=== PATIENT | male | born 1950 | race Caucasian/White ===

== ENCOUNTER 2021-09-03 11:12 | Outpatient (CLI) | payer MEDICARE, BC, SELFPAY ==
[2021-09-03 11:35] VITALS: BP 152/77; PULSE 73; RESP 21; TEMP 36.9; O2SAT 98
[2021-09-03 12:06] VITALS: BP 148/81; PULSE 68; RESP 19; TEMP 37.1; O2SAT 99; BMI 24.3
[2021-09-03 13:06] VITALS: BP 177/89; PULSE 77; RESP 19; TEMP 36.7; O2SAT 99
== END 2021-09-03 11:13 | disposition home or self-care (01) ==
LOC: OPS 11:14
PROVIDERS: PCP Nurse Practitioner; Visit Provider Nurse Practitioner Family
DX: U07.1 COVID-19 (principal)
CPT/HCPCS: 96365

== ENCOUNTER → 2022-10-16 09:21 | Outpatient (BNVA) | payer MEDICARE, SELFPAY | PROVIDERS: PCP Nurse Practitioner; Visit Provider Nurse Practitioner Family | DX: J98.8 Other specified respiratory disorders (principal); R06.02 Shortness of breath | CPT/HCPCS: 71046 ==

== ENCOUNTER → 2022-10-23 10:44 | Outpatient (BNVA) | payer MEDICARE, SELFPAY | PROVIDERS: PCP Nurse Practitioner; Visit Provider Nurse Practitioner Family | DX: R06.02 Shortness of breath (principal) | CPT/HCPCS: 71046 ==

== ENCOUNTER 2022-10-23 12:37 | Emergency (ER) | payer MEDICARE, SELFPAY ==
[2022-10-23 12:46] VITALS: BP 145/82; PULSE 91; RESP 19; TEMP 36.9; O2SAT 97; BMI 25.0
--- NOTE | 2022-10-23 13:39 | ECG_ITS ---
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 Measurements Intervals [place] Rate: 92 P: 81 ID: [id number] QRS: 68 QRSD: 118 T: -90 QT: 375 QTc: 465 Interpretive Statements SINUS RHYTHM POSSIBLE LEFT ATRIAL ENLARGEMENT [-0.1mV P-WAVE IN V1/V2] LEFT VENTRICULAR HYPERTROPHY AND ST-T CHANGE [VOLTAGE CRITERIA PLUS ST/T ABNORMALITY] No previous ECG available for comparison Electronically Signed On 10-23-2022 23:26:34 MACHINE OVERHAULER by Miguel A Salinas M.D. [id number]
--- NOTE | 2022-10-23 13:48 | ED_ITS ---
HPI - SOB/Dyspnea General: Chief Complaint: Shortness of Breath/Dyspnea Stated Complaint: King yasmeen, sob, legs swelling Time Seen by Provider: 10/23/22 13:36 Source: patient Mode of arrival: ambulatory History of Present Illness: HPI Narrative: 72-year-old male presents to the emergency room with last week generally not feeling well chest x-ray done yesterday shows small pleural effusions and some congestive heart failure changes he was directed here by the nurse practitioner. He currently is on an LORY inhibitor he is not on any diuretics. Patient has no fever sweats or chills he has been short of breath with minimal exertion and has some orthopnea. Has not had any fever sweats chills no productive cough. He denies any chest pain. MD elicited complaint: shortness of breath and cough Pertinent past history: congestive heart failure Onset (ago): week(s) Timing: constant Exacerbating factors: exertion and other (Supine) Relieving factors: upright position Associated symptoms: Reports orthopnea; Deny abdominal pain, chest congestion, chest pain, cough, diaphoresis, dizziness, extremity pain, fever(s), hemoptysis, lightheadedness, myalgias, nausea, palpitations, paresthesias, polydipsia, polyuria, rash, sense of impending doom, syncope or vomiting Treatment prior to arrival: none Review of Systems Const: Denies: fever(s), chills, fatigue, malaise or diaphoresis ENMT: Denies: throat pain, ear or mastoid pain, nasal discharge or nasal congestion Card: Reports: orthopnea; Denies: chest pain, palpitations, lightheadedness, syncope or dyspnea on exertion Resp: Reports: dyspnea; Denies: productive cough, non-productive cough, hemoptysis or chest congestion GI: Denies: abdominal pain, nausea or vomiting : Denies: flank pain, dysuria, urinary frequency or urinary urgency Musc: Denies: extremity pain Skin/Breast: Denies: rash or pruritus Neuro: Denies: dizziness Endo: Denies: polyuria or polydipsia PFSH ED PFSH: Medical History Bee sting allergy Environmental allergies Essential (primary) hypertension Neuropathy due to herpes zoster Type 2 diabetes mellitus Surgical History Hx of hernia repair Family History Mother Diabetes Hypertension Social History Smoking and tobacco status: never smoked Second hand smoke exposure: No Smoking risk assessment/counseling performed?: No Alcohol intake: never Desire information about alcohol rehabilitation?: No Counseling given: No Desire information about substance/drug rehabilitation?: No Counseling given: No Adopted: No Caregiver/support person: No Lives independently: Yes Household members: spouse Housing: House Marital status: service: Yes branch: [employer] Current occupational status: retired Current occupational exposures/hazards: No Pets and animals: Yes Pets & animals: farm animals Current gender identity: Male Physical Exam Const: COMMON NORMALS: no acute distress GENERAL APPEARANCE: cooperative and comfortable ORIENTATION/CONSCIOUSNESS: Yes awake, Yes oriented to person, Yes oriented to place and Yes oriented to time HENMT: COMMON NORMALS: normocephalic and atraumatic HEAD & SCALP: normocephalic and atraumatic Resp: COMMON NORMALS: normal respiratory effort, No retractions and No use of accessory muscles AUSCULTATION: crackles Cardio: COMMON NORMALS: regular rate, regular rhythm and No murmurs present (Cardio) RATE: regular rate RHYTHM: regular rhythm GI: COMMON NORMALS: Soft to palpation and No hepatosplenomegaly present AUSCULTATION: Yes normoactive bowel sounds PALPATION: Yes Soft to palpation, No Tenderness to palpation present (GI), No Guarding due to palpation present (GI) and Yes No hepatosplenomegaly present Extremity: COMMON NORMALS: normal to inspection, capillary refill normal, no clubbing, cyanosis or edema, no calf tenderness and no pedal edema Neuro: SENSORIUM/ORIENTATION: Yes oriented to person, Yes oriented to place and Yes oriented to time Skin: COMMON NORMALS: no rashes or lesions noted GENERAL SKIN EXAM: no rash es or lesions noted Course Vital Signs: Vital signs: Vital Signs Temperature 98.4 F 10/23/22 12:46 Pulse Rate 91 10/23/22 12:46 Respiratory Rate 19 H 10/23/22 12:46 Blood Pressure 145/82 10/23/22 12:46 Pulse Oximetry 97 10/23/22 12:46 Oxygen Delivery Me thod 10/23/22 12:46 MDM - SOB/Dyspnea Medical Decision Making Clinically patient has moderate congestive heart failure. Oxygen sats are good he did respond to diuretics diuresis here in the ER. Recommend increasing his lisinopril adding a low-dose metoprolol at 12.5 daily also adding Lasix deseeding his hydrochlorothiazide schedule an outpatient echocardiogram and follow-up with cardiology. No evidence of pneumonia or pneumothorax. Discussed medication changes with the patient. No incentive chart noticed that the hydrochlorothiazide was still in the active medicine list. We had intended for him to stop it. I had the nursing staff call the patient and ask him to stop the hydrochlorothiazide for now. Medical Records I reviewed the patient's medical records. Lab Data I reviewed the patient's lab results. 10/23/22 14:05 10/23/22 14:05 Labs/Radiology: Laboratory Results WBC 8.9 10^3/uL (4.0-10.0) 10/23/22 14:05 RBC 4.64 10^6/uL (4.1-5.3) 10/23/22 14:05 Hgb 14.1 g/dL (11.7-16.6) 10/23/22 14:05 Hct 43.9 % (42.0-52.0) 10/23/22 14:05 MCV 94.6 fl (80-94) H 10/23/22 14:05 MCH 30.4 pg (28.0-34.0) 10/23/22 14:05 MCHC 32.1 g/dL (30.0-36.0) 10/23/22 14:05 RDW 13.5 % (12.1-15.1) 10/23/22 14:05 Plt Count 177 10^3/cmm (130-400) 10/23/22 14:05 MPV 12.2 fL (7.4-10.4) H 10/23/22 14:05 Neut % (Auto) 67.5 % 10/23/22 14:05 Lymph % (Auto) 18.4 % 10/23/22 14:05 [place] % (Auto) 12.2 % 10/23/22 14:05 Eos % (Auto) 1.4 % 10/23/22 14:05 Baso % (Auto) 0.2 % 10/23/22 14:05 Neut # (Auto) 5.97 10^3/uL (1.8-7.7) 10/23/22 14:05 Lymph # (Auto) 1.6 10^3/uL (0.8-4.8) 10/23/22 14:05 [place] # (Auto) 1.1 10^3/uL (0.2-0.9) H 10/23/22 14:05 Eos # (Auto) 0.1 10^3/uL (0.0-0.8) 10/23/22 14:05 Baso # (Auto) 0.0 10^3/uL (0.0-0.1) 10/23/22 14:05 Nucleated RBC % (auto) 0 % 10/23/22 14:05 Nucleated RBCs # 0.0 /100WBC 10/23/22 14:05 Sodium 137 mmol/L (136-145) 10/23/22 14:05 Potassium 4.0 mmol/L (3.5-5.1) 10/23/22 14:05 Chloride 101 mmol/L (98-107) 10/23/22 14:05 Carbon Dioxide 24 mmol/L (22-29) 10/23/22 14:05 Anion Gap 16.0 (5-19) 10/23/22 14:05 BUN 17 mg/dL (8-23) 10/23/22 14:05 Creatinine 0.8 mg/dL (0.7-1.2) 10/23/22 14:05 GFR Calculation Not Reportable 10/23/22 14:05 Glucose 135 mg/dL (65-115) H 10/23/22 14:05 Calculated Osmolality 288 mOsm/kg (285-295) 10/23/22 14:05 Calcium 8.8 mg/dL (8.5-10.5) 10/23/22 14:05 Total Bilirubin 0.8 mg/dL (0.15-1.2) 10/23/22 14:05 AST 20 U/L (0-40) 10/23/22 14:05 ALT 39 U/L (0-41) 10/23/22 14:05 Alkaline Phosphatase 52 U/L (40-130) 10/23/22 14:05 Total Protein 6.5 g/dL (6.6-8.7) L 10/23/22 14:05 Albumin 4.1 g/dL (3.5-5.2) 10/23/22 14:05 Globulin 2.4 g/dL (1.3-4.6) 10/23/22 14:05 Discharge Plan Discharge Patient Disposition: Home Clinical Impression: Congestive heart failure, Essential (primary) hypertension, Type 2 diabetes mellitus Condition: Stable Prescriptions: New Toprol XL 25 mg tablet extended release 24 hr 12.5 mg PO DAILY Qty: 30 0RF furosemide 20 mg tablet 20 mg PO DAILY Qty: 30 0RF Changed lisinopril 20 mg tablet 20 mg PO QDAY Qty: 30 0RF Discontinued hydrochlorothiazide 12.5 mg tablet 12.5 mg PO DAILY No Action metformin 500 mg tablet 250 mg PO DAILY albuterol sulfate 90 mcg/actuation HFA aerosol inhaler 2 puff inhalation QID PRN (Reason: shortness of breath or wheezing) Qty: 6.7 0RF Vitamin C 500 mg Tablet 500 mg PO DAILY Vitamin D3 25 mcg (1,000 unit) Capsule 25 mcg PO DAILY Men's 50 Plus Multivitamin 400-20-370 mcg Tablet 1 tab PO DAILY Discharge Orders: Discharge ED (Routine); Ordered 10/23/22 Ordered By: Dany Schultz Referrals: Kira Joseph, MARCELOC [Primary Care Provider] - Discharge Diet: Cardiac and Low Salt Discharge Activity: Increase activity as tolerated Patient Instructions: Opioid Safety, Pain Management Activity Restrictions/Additional Instructions: You are seen today with signs of mild congestive heart failure chest x-ray. Recommend that you increase your lisinopril to 20 mg daily. We will also add Toprol-XL 12.5 mg daily. Both of these can be helpful in patients with congestive heart failure. In addition to that we will have you take Lasix 20 mg daily to decrease fluid retention. Finally outpatients we will set you up for an echocardiogram and a follow-up with cardiology. You should see cardiology within the next week to reevaluate the new medication changes and reassess your overall condition. Coding Level of Care Code ED Clinical Administrative Coordinator for Dotty Ceballos
[2022-10-23] MEDS: FUROsemide 10 mg/mL SDV 4mL 40 MG IVP (14:06)
[2022-10-23 14:35] LABS: Basophils % 0.2 %; Eosinophils # 0.1 10^3/uL (0.0-0.8); Eosinophils % 1.4 %; Hematocrit 43.9 % (42.0-52.0); Hemoglobin 14.1 g/dL (11.7-16.6); Lymphocytes # 1.6 10^3/uL (0.8-4.8); Lymphocytes % 18.4 %; Mean Corpuscular HGB Conc 32.1 g/dL (30.0-36.0); Mean Corpuscular Hemoglobin 30.4 pg (28.0-34.0); Mean Corpuscular Volume 94.6 fl (80-94); Mean Platelet Volume 12.2 fL (7.4-10.4); Monocytes # 1.1 10^3/uL (0.2-0.9); Monocytes % 12.2 %; Neutrophils # 5.97 10^3/uL (1.8-7.7); Neutrophils % 67.5 %; Nucleated Red Blood Cells % 0 %; Platelet Count 177 10^3/cmm (130-400); Red Blood Count 4.64 10^6/uL (4.1-5.3); Red Cell Distribution Width 13.5 % (12.1-15.1); White Blood Count 8.9 10^3/uL (4.0-10.0)
[2022-10-23 14:53] LABS: Alanine Aminotransferase 39 U/L (0-41); Albumin Level 4.1 g/dL (3.5-5.2); Alkaline Phosphatase 52 U/L (40-130); Aspartate Amino Transferase 20 U/L (0-40); Blood Urea Nitrogen 17 mg/dL (8-23); Calcium 8.8 mg/dL (8.5-10.5); Carbon Dioxide 24 mmol/L (22-29); Chloride 101 mmol/L (98-107); Globulin 2.4 g/dL (1.3-4.6); Glucose 135 mg/dL (65-115); Osmolality Calculated 288 mOsm/kg (285-295); Sodium 137 mmol/L (136-145); Total Bilirubin 0.8 mg/dL (0.15-1.2); Total Protein 6.5 g/dL (6.6-8.7)
--- NOTE | 2022-10-24 07:36 | PC.NURSE ---
PROVIDER VERBAL ORDER TO CALL PATIENT ASK INSTRUCT TO STOP TAKING HCTZ. PATIENT ANSWERED PHONE AND HAD QUESTIONS ABOUT OTHER MEDICATIONS. PATIENT INSTRUCTED TO CONTINUE TO TAKE LISINOPRIL 40 MG DAILY AND TO STOP TAKING HCTZ. PATIENT VERBALIZED UNDERSTANDING. NO FURTHER QUESTIONS AT THIS TIME.
--- NOTE | 2022-10-27 13:06 | DCPLANNER ---
Addendum entered by Annette Bullock 12/01/22 07:56: Patient had an appointment scheduled with heart care - patient did attend appointment Patient had an appointment scheduled for an outpatient echo - patient did attend appointment Addendum entered by Annette Bullock 10/30/22 13:49: Patient has a follow up appointment scheduled for October at 12:15 for an outpatient echo. Centralized scheduling will call patient with appointment information. Addendum entered by Annette Bullock 10/28/22 13:08: Patient has a follow up appointment scheduled for October at 3:[address] Huertas at [facility]. Clinic will call patient with appointment information. Addendum entered by Annette Bullock 10/27/22 13:08: manager client service sent notification to patients primary care physician that the test was ordered for patient from the ER. Original Note: manager client service had message to schedule a follow up appointment for patient with cardiology. manager client service sent patients information to the front office staff at [facility]. Patients information will be printed and reviewed. Clinic will call patient with appointment information. manager client service had message to schedule an outpatient echo for patient. manager client service faxed signed order to centralized scheduling, who will call patient with appointment information.
== END 2022-10-23 16:46 | disposition home or self-care (01) ==
PROVIDERS: Emergency Provider Family Medicine; PCP Nurse Practitioner
DX: I50.9 Heart failure, unspecified (principal); I10 Essential (primary) hypertension; E11.9 Type 2 diabetes mellitus without complications; R06.02 Shortness of breath
CPT/HCPCS: 36415; 71046; 80053; 83880; 85025; 93005; 96374; 99285; J1940

== ENCOUNTER → 2022-10-29 15:00 | Outpatient (BNVA) | payer MEDICARE, SELFPAY | PROVIDERS: PCP Nurse Practitioner; Visit Provider Internal Medicine Cardiovascular Disease | DX: I11.0 Hypertensive heart disease with heart failure (principal); I50.9 Heart failure, unspecified; M79.89 Other specified soft tissue disorders; R09.89 Other specified symptoms and signs involving the circulatory and respiratory systems; E11.9 Type 2 diabetes mellitus without complications; Z79.84 Long term (current) use of oral hypoglycemic drugs; I42.9 Cardiomyopathy, unspecified | CPT/HCPCS: 99205 ==

== ENCOUNTER 2022-11-05 11:52 | Outpatient (CLI) | payer MEDICARE, SELFPAY ==
--- NOTE | 2022-11-05 12:15 | USCV_ITS ---
Loy Palumbo Age: 72 Gender: M : 1950 Exam Date: 11/05/2022 12:05 Ordering Phys: Paul Huertas MD ([email or web address]) Technologist: ALLIE [place] [facility] [place]: heart failure BP: 140 / 72 HR: 77 Rhythm: Sinus Technical Quality: Adequate MEASUREMENTS (Male / Female) Normal Values 2D ECHO LV Diastolic Diameter PLAX 7.1 cm 4.2 - 5.9 / 3.9 - 5.3 cm LV Systolic Diameter PLAX 6.6 cm IVS Diastolic Thickness 0.8 cm 0.6 - 1.0 / 0.6 - 0.9 cm IVS Systolic Thickness 1.2 cm LVPW Diastolic Thickness 1.5 cm 0.6 - 1.0 / 0.6 - 0.9 cm LVPW Systolic Thickness 1.6 cm LVOT Diameter 2.0 cm LV Ejection Fraction 2D Teich 15.0 % LV Ejection Fraction MOD 2C 26.5 % LV Ejection Fraction 2C AL 25.4 % LA Diameter 4.2 cm LA Width 5.0 cm LA Height 6.4 cm RA Width 4.3 cm RA Height 4.8 cm Aorta at Sinotubular Diameter 2.0 cm IVC Diameter 1.9 cm M-MODE Aortic Annulus Diameter 2.5 cm LA Ao Ratio MM 1.7 MV E Point Septal Separation 2.5 cm DOPPLER AV Peak Velocity 161.7 cm/s LVOT Peak Velocity 56.0 cm/s AV Area Cont Eq vti 1.1 cm squared AV Area Cont Eq pk 1.1 cm squared MV Peak Velocity 91.0 cm/s MV Area PHT 6.3 cm squared Mitral E to A Ratio 3.7 MV E' Velocity 47.5 cm/s Mitral E to MV E' Ratio 13.9 Mitral E to LV E' Lateral Ratio 11.7 Mitral E to LV E' Septal Ratio 17.5 TR Peak Velocity 284.0 cm/s TR Peak Gradient 32.3 mmHg TR Mean Velocity 212.6 cm/s TR Mean Gradient 20.3 mmHg TR Velocity Time Integral 72.0 cm Right Atrial Pressure 3.0 mmHg Pulmonary Artery Systolic Pressu 35.3 mmHg PV Peak Velocity 76.0 cm/s RV Acceleration Time 0.1 s RV Ejection Time 0.2 s RV AcT/ET 0.4 FINDINGS Left Ventricle Severe diffuse hypokinesia of the left ventricle with ejection fraction around 25%. Moderately dilated left ventricule. Right Ventricle Normal RV size with a slightly diminished ejection fraction Right Atrium Possibly of normal size Left Atrium Moderately dilated left atrium Mitral Valve Mild to moderate mitral regurgitation Aortic Valve Thickened aortic valve. Mild aortic valve regurgitation. Tricuspid Valve Mild tricuspid valve regurgitation. Pulmonic Valve No gross abnormalities noted Pericardium No pericardial effusion. Aorta Normal aortic annulus size. IVC Inferior vena cava not visualized. CONCLUSIONS Severe diffuse hypokinesia of the left ventricle with ejection fraction around 25%. Moderately dilated left atrium Mild to moderate mitral regurgitation Thickened aortic valve. Mild aortic valve regurgitation. Mild tricuspid valve regurgitation. Moderately dilated left ventricule. Estimated pulmonary artery peak systolic pressure 35 mmHg There is no pericardial effusion. There are no intracardiac masses. No similar previous studies are available for comparison Dr Paul Huertas MD [facility] (Electronically Signed) Final Date: 05 November 2022 13:54 S
== END 2022-11-05 11:53 | disposition home or self-care (01) ==
LOC: RAD 11:54
PROVIDERS: PCP Nurse Practitioner Family; Visit Provider Internal Medicine Cardiovascular Disease
DX: I42.9 Cardiomyopathy, unspecified (principal); I50.9 Heart failure, unspecified; I08.3 Combined rheumatic disorders of mitral, aortic and tricuspid valves; R06.02 Shortness of breath; R09.89 Other specified symptoms and signs involving the circulatory and respiratory systems
CPT/HCPCS: 80048; 83880; 93306

== ENCOUNTER 2022-11-14 12:28 | Emergency (ER) | payer MEDICARE, SELFPAY ==
[2022-11-14 12:35] VITALS: BP 143/85; PULSE 94; TEMP 36.6; O2SAT 97; BMI 22.4
--- NOTE | 2022-11-14 12:41 | W.ED.NEUROSD ---
HPI - Neuro Symptoms/Deficit General: Chief Complaint: Neuro Symptoms/Deficit Stated Complaint: right side mouth droop/blur vision Time Seen by Provider: 11/14/22 12:41 History of Present Illness: Mr. Palumbo is a 72-year-old gentleman with complex past medical history including cardiomyopathy, diabetes, hypertension, carotid bruit presenting to the emergency department for intermittent strokelike symptoms currently not present. He reports starting yesterday having episodes of right-sided facial droop, slurred speech, visual disturbance. Intensity when present is moderate to severe. Typically lasts approximately 10 minutes. He had 2 episodes yesterday and has had 2 more today. Not associated with any particular activity. Denies similar episodes in the past. No other specific changes in health, exacerbating, or alleviating factors identified. Location: right face, dysarthria and other History of same: No Severity: severe Quality: intermittent Relieving factors: none Exacerbating factors: none Context: sudden onset On Anticoagulants: No Associated symptoms: Reports no associated symptoms Review of Systems General: Reports: 10 or more systems reviewed and unremarkable except in HPI and below PFSH ED PFSH: Medical History Bee sting allergy Environmental allergies Essential (primary) hypertension Neuropathy due to herpes zoster Type 2 diabetes mellitus Surgical History Hx of hernia repair Family History Mother Diabetes Hypertension CAD (coronary artery disease) Chronic kidney disease (CKD) Father CAD (coronary artery disease) Grandfather Suicide Denies family history of Clotting disorder Dementia Hyperlipidemia Psychiatric illness Anesthesia complication Bleeding disorder Family history of premature coronary artery disease Lung disease Cancer Stroke Social History Smoking and tobacco status: never smoked Second hand smoke exposure: No Smoking risk assessment/counseling performed?: No Alcohol intake: never Desire information about alcohol rehabilitation?: No Counseling given: No Desire information about substance/drug rehabilitation?: No Counseling given: No Adopted: No Caregiver/support person: No Lives independently: Yes Household members: spouse Housing: House Marital status: service: Yes branch: [employer] Current occupational status: retired Current occupational exposures/hazards: No Pets and animals: Yes Pets & animals: farm animals Current gender identity: Male Physical Exam Const: COMMON NORMALS: patient oriented x3 and alert GENERAL APPEARANCE: cooperative and well developed HENMT: COMMON NORMALS: normocephalic and atraumatic HEAD & SCALP: normocephalic and atraumatic THROAT: posterior oropharynx normal Eye: COMMON NORMALS: conjunctivae normal CONJUNCTIVA: Yes conjunctivae normal SCLERA: sclerae normal Neck/C-Spine: COMMON NORMALS: supple GENERAL: Yes trachea midline Resp: COMMON NORMALS: clear to auscultation bilaterally EFFORT & INSPECTION: Yes able to speak in complete sentences AUSCULTATION: clear to auscultation bilaterally Cardio: COMMON NORMALS: regular rate and regular rhythm RATE: regular rate RHYTHM: regular rhythm GI: COMMON NORMALS: Soft to palpation PALPATION: Yes Soft to palpation and No Tenderness to palpation present (GI) Extremity: GENERAL: Yes normal exam except as noted and No edema Neuro: COMMON NORMALS: patient oriented x3, CN's II-XII intact bilaterally, moves all extremities, no focal motor deficits and no sensory deficits noted SENSORIUM/ORIENTATION: Yes alert and No Orientation impaired Psych: COMMON NORMALS: mental status grossly normal and Normal thought process present THOUGHT PROCESS: Normal thought process present Course Vital Signs: Vital signs: Vital Signs Temperature 97.8 F 11/14/22 12:35 Pulse Rate 94 11/14/22 12:35 Blood Pressure 133/72 11/14/22 20:09 Pulse Oximetry 93 11/14/22 20:09 Oxygen Delivery Me thod 11/14/22 12:35 MDM - Neuro Symptoms/Deficit Medical Decision Making 72-year-old gentleman with complex history including cardiomyopathy currently wearing LifeVest presenting for recurrent strokelike symptoms. Patient neuro intact currently. EKG notable for sinus rhythm with ST segment abnormalities, normal axis, no STEMI. Labs with no significant hematologic or metabolic abnormality to explain symptoms. Elevated initial troponin with negative range 2-hour delta. BNP is improved from prior. CTA with significant stenosis and vascular disease. Concern for critical stenosis as etiology of patient's transient strokelike symptoms. Discussed with neuro, vascular surgery, hospitalist service at [facility] in [place]. Plan to initiate patient on heparin drip and transfer for further management. The results of ED evaluation were discussed with the patient including plan for transfer due to requirement for level of care not available if discharged to prevent significant worsening/deterioration. Patient agreeable with plan. Medical Records I reviewed the patient's medical records. Lab Data I reviewed the patient's lab results. 11/14/22 12:58 11/14/22 12:58 Radiology Impressions Chest X-Ray 11/14/22 12:50 IMPRESSION: No evidence of focal consolidation. COPD changes. Head/Neck CTA 11/14/22 12:50 IMPRESSION: 1. No hemodynamic stenosis or major branch occlusion. 2. Complete opacification right maxillary sinus with masslike extension into the right nasal fossa suggestive of antrochoanal polyp IMPRESSION: 1. Extensive calcification left carotid bulb with critical stenosis left ICA (greater than 90%). 2. Extensive calcification right carotid bulb with severe stenosis (80-90%). 3. Calcification with stenosis origin of both vertebral arteries difficult to further evaluate. REFERENCES: NASCET CRITERIA. The degree of stenosis in the cervical segment of the internal carotid artery is based on NASCET criteria. Normal is no stenosis. Mild is less than 50% stenosis. Moderate is 50-69% stenosis. Severe is 70% to 99% stenosis. Total occlusion is no detectable patent lumen. ADDENDUM: 11/14/22 [id number] THIS REPORT CONTAINS FINDINGS THAT MAY BE CRITICAL TO PATIENT CARE. The findings were verbally communicated via telephone conference with Dallin Del Valle at 2:50 PM SECURITY REPRESENTATIVE on 11/14/2022. The findings were acknowledged and understood. Laboratory Results WBC 9.1 10^3/uL (4.0-10.0) 11/14/22 12:58 RBC 4.83 10^6/uL (4.1-5.3) 11/14/22 12:58 Hgb 14.8 g/dL (11.7-16.6) 11/14/22 12:58 Hct 45.3 % (42.0-52.0) 11/14/22 12:58 MCV 93.8 fl (80-94) 11/14/22 12:58 MCH 30.6 pg (28.0-34.0) 11/14/22 12:58 MCHC 32.7 g/dL (30.0-36.0) 11/14/22 12:58 RDW 13.4 % (12.1-15.1) 11/14/22 12:58 Plt Count 212 10^3/cmm (130-400) 11/14/22 12:58 MPV 11.6 fL (7.4-10.4) H 11/14/22 12:58 Neut % (Auto) 73.2 % 11/14/22 12:58 Lymph % (Auto) 17.2 % 11/14/22 12:58 [place] % (Auto) 7.9 % 11/14/22 12:58 Eos % (Auto) 1.3 % 11/14/22 12:58 Baso % (Auto) 0.2 % 11/14/22 12:58 Neut # (Auto) 6.68 10^3/uL (1.8-7.7) 11/14/22 12:58 Lymph # (Auto) 1.6 10^3/uL (0.8-4.8) 11/14/22 12:58 [place] # (Auto) 0.7 10^3/uL (0.2-0.9) 11/14/22 12:58 Eos # (Auto) 0.1 10^3/uL (0.0-0.8) 11/14/22 12:58 Baso # (Auto) 0.0 10^3/uL (0.0-0.1) 11/14/22 12:58 Nucleated RBC % (auto) 0 % 11/14/22 12:58 Nucleated RBCs # 0.0 /100WBC 11/14/22 12:58 PT 15.40 SECONDS (12.1-14.9) H 11/14/22 12:58 INR 1.18 (0.8-1.2) 11/14/22 12:58 APTT 34.1 SECONDS (23.9-36.7) 11/14/22 12:58 Sodium 138 mmol/L (136-145) 11/14/22 12:58 Potassium 4.8 mmol/L (3.5-5.1) 11/14/22 12:58 Chloride 103 mmol/L (98-107) 11/14/22 12:58 Carbon Dioxide 24 mmol/L (22-29) 11/14/22 12:58 Anion Gap 15.8 (5-19) 11/14/22 12:58 BUN 12 mg/dL (8-23) 11/14/22 12:58 Creatinine 0.7 mg/dL (0.7-1.2) 11/14/22 12:58 GFR Calculation Not Reportable 11/14/22 12:58 Glucose 163 mg/dL (65-115) H 11/14/22 12:58 Estimat Average Glucose 140 11/14/22 12:58 Hemoglobin A1c 6.5 % (4.0-6.0) H 11/14/22 12:58 Calculated Osmolality 289 mOsm/kg (285-295) 11/14/22 12:58 Calcium 9.6 mg/dL (8.5-10.5) 11/14/22 12:58 Magnesium 2.0 mg/dL (1.7-2.3) 11/14/22 12:58 Total Bilirubin 0.5 mg/dL (0.15-1.2) 11/14/22 12:58 AST 14 U/L (0-40) 11/14/22 12:58 ALT 13 U/L (0-41) 11/14/22 12:58 Alkaline Phosphatase 59 U/L (40-130) 11/14/22 12:58 Troponin T Baseline 145 ng/L (0-15) H* 11/14/22 12:58 Troponin T 120 Minute 141.8 ng/L (0-15) H 11/14/22 15:02 Delta Troponin T -3.2 ABS# (0-10) L 11/14/22 15:02 Troponin T Hi Sens 6Hr 158.4 ng/L (0-15) H 11/14/22 18:54 Troponin T Hi Sens 6Hr Delta 13.4 ng/L (0-12) H* 11/14/22 18:54 NT-Pro-B Natriuret Pep 2373 pg/mL (0-125) H 11/14/22 12:58 Total Protein 6.8 g/dL (6.6-8.7) 11/14/22 12:58 Albumin 4.3 g/dL (3.5-5.2) 11/14/22 12:58 Globulin 2.5 g/dL (1.3-4.6) 11/14/22 12:58 Triglycerides 100 mg/dL (0-150) 11/14/22 12:58 Cholesterol 160 mg/dL (0-200) 11/14/22 12:58 LDL Cholesterol, Calc 101 mg/dL (50-129) 11/14/22 12:58 HDL Cholesterol 39 mg/dL (60-100) L 11/14/22 12:58 LDL/HDL Ratio 2.59 RATIO (0.00-3.22) 11/14/22 12:58 Cholesterol/HDL Ratio 4.10 mg/dL (1.0-5.00) 11/14/22 12:58 TSH 4.60 uIU/mL (0.27-4.20) H 11/14/22 12:58 Free T4 1.11 ng/dL (0.82-1.77) 11/14/22 12:58 Critical Care Time Critical Care Time: Critical Care Time: Yes Total Critical Care Time: 35 Attestation: Due to a high probability of clinically significant, possibly life threatening deterioration, the patient required my highest level of attention and preparedness to intervene emergently and I personally spent this critical care time directly and personally managing the patient. This critical care time included obtaining a history; examining the patient; pulse oximetry; ordering and review of laboratory and imaging studies; arranging urgent treatment with development of a management plan; evaluation of patient's response to treatment; frequent reassessment; and, discussions with other providers as applicable. It was exclusive of separately billable procedures. Primary system involved is neurovascular Discharge Plan Discharge Patient Disposition: Transfer to ED Condition: Stable Prescriptions: No Action albuterol sulfate 90 mcg/actuation HFA aerosol inhaler 2 puff inhalation QID PRN (Reason: shortness of breath or wheezing) Qty: 6.7 0RF spironolactone 25 mg tablet 25 mg PO DAILY Qty: 90 3RF potassium chloride 20 mEq tablet extended release 20 meq PO DAILY Qty: 90 3RF Entresto 24-26 mg tablet 1 tab PO BID Qty: 180 0RF cholecalciferol (vitamin D3) [Vitamin D3] 25 mcg (1,000 unit) Capsule 25 mcg PO DAILY Men's 50 Plus Multivitamin 400-20-370 mcg Tablet 1 tab PO DAILY atorvastatin 80 mg Tablet 80 mg PO QPM clopidogrel 75 mg Tablet 75 mg PO DAILY aspirin [Aspir-81] 81 mg Tablet,Delayed Release (Dr/Ec) 81 mg PO DAILY carvedilol 3.125 mg Tablet 3.125 mg PO BID Rx Instructions: must administer with a meal/food empagliflozin 25 mg Tablet 25 mg PO QAM furosemide 20 mg tablet 40 mg PO DAILY PRN (Reason: Edema) trazodone 50 mg tablet 50 mg PO BEDTIME Referrals: Jazmyne Whittington FNP-C [Primary Care Provider] - Coding Level of Care Code ED Machining Department Supervisor for Dotty Ceballos
--- NOTE | 2022-11-14 12:47 | PC.NURSE ---
no facial droop noted, face appears symmetrical. pt denies any difference in sensation left vs right. pt reports blurred vision with left eye, but is unsure if it is due to his baseline poor vision, reports he wears glasses. pt speech clear, answering questions appropriately. able to follow commands. pt resting in bed, on VS monitor. unable to place pt on bedside bus driver/monitor due to pt currently wearing a life vest. pt lung sounds clear. pt oriented to person, place, month, date, and age.
--- NOTE | 2022-11-14 12:50 | XRR_ITS ---
PROCEDURE INFORMATION: Exam: XR Chest Exam date and time: 11/14/2022 12:55 PM Age: 72 years old Clinical indication: Dyspnea; Additional info: Stroke like symptoms TECHNIQUE: Imaging protocol: Radiologic exam of the chest. Views: 1 view. COMPARISON: CR XR chest 2V* [id number] 10/23/2022 10:42 AM FINDINGS: Lungs: The lungs are somewhat hyperinflated with increased interstitial markings, likely representing COPD. No evidence of focal consolidation to suggest pneumonia. Pleural spaces: Unremarkable. No pleural effusion. No pneumothorax. Heart/Mediastinum: Stable cardiomediastinal silhouette. Bones/joints: Unremarkable. XR/XR chest 1V portable [id number] IMPRESSION: No evidence of focal consolidation. COPD changes.
--- NOTE | 2022-11-14 12:50 | CTR_ITS ---
PROCEDURE INFORMATION: Exam: CTA Head With Contrast, Arteriography Exam date and time: 11/14/2022 1:21 PM Age: 72 years old Clinical indication: Other: R mouth droop; Additional info: Stroke like symptoms TECHNIQUE: Imaging protocol: Computed tomographic angiography of the head with contrast. Exam focused on the arteries. 3D rendering (Not supervised by radiologist): MIP and/or 3D reconstructed images were created by the technologist. Radiation optimization: All CT scans at this facility use at least one of these dose optimization techniques: automated exposure control; mA and/or kV adjustment per patient size (includes targeted exams where dose is matched to clinical indication); or iterative reconstruction. Contrast material: OMNI 350; Contrast volume: 100 ml; Contrast route: INTRAVENOUS (IV); REPORTING DATA: Count of CT and Cardiac NM exams in prior 12 months: This patient has received 0 known CTs and 0 known cardiac nuclear medicine studies in the 12 months prior to the current study. COMPARISON: No relevant prior studies available. RADIATION DOSE METRICS: Total DLP (mGy-cm): 1060.22 FINDINGS: ANTERIOR CIRCULATION: Right internal carotid artery: Intracranial segment is patent with no significant stenosis. No aneurysm. Right middle cerebral artery: No occlusion or significant stenosis. No aneurysm. Right anterior cerebral artery: No occlusion or significant stenosis. No aneurysm. Left internal carotid artery: Intracranial segment is patent with no significant stenosis. No aneurysm. Left middle cerebral artery: No occlusion or significant stenosis. No aneurysm. Left anterior cerebral artery: No occlusion or significant stenosis. No aneurysm. POSTERIOR CIRCULATION: Right vertebral artery: No occlusion or significant stenosis. No aneurysm. Left vertebral artery: No occlusion or significant stenosis. No aneurysm. Basilar artery: No occlusion or significant stenosis. No aneurysm. Right posterior cerebral artery: No occlusion or significant stenosis. No aneurysm. Left posterior cerebral artery: No occlusion or significant stenosis. No aneurysm. Brain: No definite mass, mass effect, or midline shift. Cerebral ventricles: No ventriculomegaly. Paranasal sinuses: There is complete opacification right maxillary sinus with marked expansion of the right maxillary antrum with slightly heterogeneous and slightly hyperintense 2.0 cm mass extending through the maxillary ostium into the right nasal fossa suspicious for antrochonal polyp. Bones/joints: Unremarkable. No acute fracture. Soft tissues: Unremarkable. PROCEDURE INFORMATION: Exam: CTA Neck With Contrast Exam date and time: 11/14/2022 1:21 PM Age: 72 years old Clinical indication: Other: R mouth droop; Additional info: Stroke like symptoms TECHNIQUE: Imaging protocol: Computed tomographic angiography of the neck with contrast. 3D rendering (Not supervised by radiologist): MIP and/or 3D reconstructed images were created by the technologist. Radiation optimization: All CT scans at this facility use at least one of these dose optimization techniques: automated exposure control; mA and/or kV adjustment per patient size (includes targeted exams where dose is matched to clinical indication); or iterative reconstruction. Contrast material: OMNI 350; Contrast volume: 100 ml; Contrast route: INTRAVENOUS (IV); REPORTING DATA: Count of CT and Cardiac NM exams in prior 12 months: This patient has received 0 known CTs and 0 known cardiac nuclear medicine studies in the 12 months prior to the current study. COMPARISON: CR (CHEST, ) 11/14/2022 12:55 PM RADIATION DOSE METRICS: Total DLP (mGy-cm): 1060.22 FINDINGS: Right common carotid artery: No stenosis. No dissection or occlusion. Right internal carotid artery: Extensive calcification origin right ICA with severe stenosis (80-90%). Remainder of the right ICA is patent. Right external carotid artery: No occlusion or stenosis of the origin. Left common carotid artery: No stenosis. No dissection or occlusion. Left internal carotid artery: Extensive calcification origin left ICA with critical stenosis (greater than 90%) resulting in associated string sign. Remainder of the left ICA is patent. Left external carotid artery: No occlusion or stenosis of the origin. Right vertebral artery: Stenosis at the origin of the right vertebral artery is otherwise unremarkable. Left vertebral artery: Stenosis at the origin of the left vertebral artery which is otherwise unremarkable. Soft tissues: Normal. No significant soft tissue swelling. Bones/joints: Moderate spondylitic changes C5-C6 and C6-C7 resulting in some degree of spinal stenosis. CT/CT angio headneck* [id number] IMPRESSION: 1. No hemodynamic stenosis or major branch occlusion. 2. Complete opacification right maxillary sinus with masslike extension into the right nasal fossa suggestive of antrochoanal polyp IMPRESSION: 1. Extensive calcification left carotid bulb with critical stenosis left ICA (greater than 90%). 2. Extensive calcification right carotid bulb with severe stenosis (80-90%). 3. Calcification with stenosis origin of both vertebral arteries difficult to further evaluate. REFERENCES: NASCET CRITERIA. The degree of stenosis in the cervical segment of the internal carotid artery is based on NASCET criteria. Normal is no stenosis. Mild is less than 50% stenosis. Moderate is 50-69% stenosis. Severe is 70% to 99% stenosis. Total occlusion is no detectable patent lumen.
--- NOTE | 2022-11-14 12:51 | ECG_ITS ---
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 Measurements Intervals [place] Rate: 87 P: 71 RI: 78 QRS: 54 QRSD: 122 T: 241 QT: 389 QTc: 470 Interpretive Statements SINUS RHYTHM WITH SHORT RI INTERVAL POSSIBLE LEFT ATRIAL ENLARGEMENT [-0.1mV P-WAVE IN V1/V2] LEFT VENTRICULAR HYPERTROPHY AND ST-T CHANGE [VOLTAGE CRITERIA PLUS ST/T ABNORMALITY] POSSIBLE SEPTAL MYOCARDIAL INFARCTION , PROBABLY OLD [30 ms Q WAVE IN V1/V2] Compared to ECG 10/23/2022 13:50:22 Short RI interval now present Myocardial infarct finding now present ST (T wave) deviation still present Electronically Signed On 11-14-2022 20:51:20 INDUSTRIAL MACHINERY MECHANIC by Miguel A Salinas M.D. [id number]
[2022-11-14] MEDS: iohexol 350 mg/mL 500 mL Btl (per mL) IV (12:55)
[2022-11-14 13:11] LABS: Basophils % 0.2 %; Eosinophils # 0.1 10^3/uL (0.0-0.8); Eosinophils % 1.3 %; Hematocrit 45.3 % (42.0-52.0); Hemoglobin 14.8 g/dL (11.7-16.6); Lymphocytes # 1.6 10^3/uL (0.8-4.8); Lymphocytes % 17.2 %; Mean Corpuscular HGB Conc 32.7 g/dL (30.0-36.0); Mean Corpuscular Hemoglobin 30.6 pg (28.0-34.0); Mean Corpuscular Volume 93.8 fl (80-94); Mean Platelet Volume 11.6 fL (7.4-10.4); Monocytes # 0.7 10^3/uL (0.2-0.9); Monocytes % 7.9 %; Neutrophils # 6.68 10^3/uL (1.8-7.7); Neutrophils % 73.2 %; Nucleated Red Blood Cells % 0 %; Platelet Count 212 10^3/cmm (130-400); Red Blood Count 4.83 10^6/uL (4.1-5.3); Red Cell Distribution Width 13.4 % (12.1-15.1); White Blood Count 9.1 10^3/uL (4.0-10.0)
[2022-11-14 13:53] LABS: Troponin(5th) Baseline 145 ng/L (0-15)
[2022-11-14 14:01] LABS: Alanine Aminotransferase 13 U/L (0-41); Albumin Level 4.3 g/dL (3.5-5.2); Alkaline Phosphatase 59 U/L (40-130); Anion Gap 15.8 (5-19); Aspartate Amino Transferase 14 U/L (0-40); Blood Urea Nitrogen 12 mg/dL (8-23); Calcium 9.6 mg/dL (8.5-10.5); Carbon Dioxide 24 mmol/L (22-29); Chloride 103 mmol/L (98-107); Globulin 2.5 g/dL (1.3-4.6); Glucose 163 mg/dL (65-115); NT Pro B Type Natriuretic Pept 2373 pg/mL (0-125); Osmolality Calculated 289 mOsm/kg (285-295); Potassium 4.8 mmol/L (3.5-5.1); Sodium 138 mmol/L (136-145); Total Bilirubin 0.5 mg/dL (0.15-1.2); Total Protein 6.8 g/dL (6.6-8.7)
--- NOTE | 2022-11-14 14:58 | ECG_ITS ---
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 Measurements Intervals [place] Rate: 87 P: 73 KS: 149 QRS: 41 QRSD: 122 T: 221 QT: 371 QTc: 448 Interpretive Statements SINUS RHYTHM POSSIBLE LEFT ATRIAL ENLARGEMENT [-0.1mV P-WAVE IN V1/V2] SEPTAL MYOCARDIAL INFARCTION , OF INDETERMINATE AGE [40+ ms Q WAVE IN V1/V2] ST DEVIATION AND MODERATE T-WAVE ABNORMALITY, CONSIDER LATERAL ISCHEMIA [-0.1+ mV T-WAVE IN I/aVL/V5/V6] ST DEVIATION AND MODERATE T-WAVE ABNORMALITY, CONSIDER INFERIOR ISCHEMIA [-0.1+ mV T-WAVE IN II/aVF] Compared to ECG 11/14/2022 13:08:08 T-wave abnormality now present Possible ischemia now present Short [place] interval no longer present Left ventricular hypertrophy no longer present ST (T wave) deviation no longer present Myocardial infarct finding still present Electronically Signed On 11-14-2022 20:51:56 VASCULAR NURSE by Miguel A Salinas M.D. [id number]
[2022-11-14 15:11] LABS: Free T4 Free Thyroxine 1.11 ng/dL (0.82-1.77)
[2022-11-14 15:53] LABS: Troponin 5 2HR Delta -3.2 ABS# (0-10)
[2022-11-14 15:54] LABS: Troponin 5 2HR 141.8 ng/L (0-15)
[2022-11-14 16:15] LABS: INR 1.18 (0.8-1.2)
[2022-11-14 16:16] LABS: Partial Thromboplastin Time 34.1 SECONDS (23.9-36.7)
[2022-11-14] MEDS: heparin 5,000 unit/mL INJ 1 mL IV (16:49)
[2022-11-14] MEDS: heparin drip 25,000 UNIT/500 ML PREMIX 22.23 UNIT IV (16:50)
[2022-11-14 17:17] LABS: Cholesterol 160 mg/dL (0-200); HDL Cholesterol 39 mg/dL (60-100); LDL Cholesterol Calculated 101 mg/dL (50-129); LDL HDL Ratio 2.59 RATIO (0.00-3.22); Triglycerides 100 mg/dL (0-150)
[2022-11-14 17:22] LABS: Estmated Average Glucose 140; Hemoglobin A1C 6.5 % (4.0-6.0)
--- NOTE | 2022-11-14 19:04 | ECG_ITS ---
[facility] Test Date: 2022-11-14 Pat Name: Loy Palumbo Department: Room: Gender: Male Metal Turner: : 1950 Requested By: Dallin Del Valle Order Number: [id number] Sandra MD: Miguel A Salinas M.D. Measurements Intervals [place] Rate: 87 P: 72 NE: 137 QRS: 51 QRSD: 128 T: 208 QT: 388 QTc: 468 Interpretive Statements SINUS RHYTHM POSSIBLE LEFT ATRIAL ENLARGEMENT [-0.1mV P-WAVE IN V1/V2] LEFT VENTRICULAR HYPERTROPHY AND ST-T CHANGE [VOLTAGE CRITERIA PLUS ST/T ABNORMALITY] Compared to ECG 11/14/2022 14:58:39 Left ventricular hypertrophy now present ST (T wave) deviation now present Myocardial infarct finding no longer present T-wave abnormality no longer present Possible ischemia no longer present Electronically Signed On 11-14-2022 20:51:24 PRODUCTION CONTROL PLANNER by Miguel A Salinas M.D. [id number]
--- NOTE | 2022-11-14 19:07 | PC.NURSE ---
report given to MAGDY Champion to assume care
[2022-11-14 19:28] LABS: Troponin 5 6HR 158.4 ng/L (0-15); Troponin 5 6HR Delta 13.4 ng/L (0-12)
[2022-11-14 20:09] VITALS: BP 133/72; O2SAT 93
== END 2022-11-14 23:30 ==
PROVIDERS: Emergency Provider Emergency Medicine; PCP Nurse Practitioner Family
DX: R29.810 Facial weakness (principal); R47.81 Slurred speech; E11.9 Type 2 diabetes mellitus without complications; I10 Essential (primary) hypertension
CPT/HCPCS: 36415; 70496; 70498; 71045; 80053; 80061; 83036; 83735; 83880; 84439; 84443; 84484; 85025; 85610; 85730; 93005; 96365; 96366; 96375; 99285; J1644; Q9967

== ENCOUNTER 2022-11-27 07:13 | Emergency (ER) | payer MEDICARE, SELFPAY ==
--- NOTE | 2022-11-27 07:14 | XR_ITS ---
WS: [id number] Portable AP upright chest, 11/27/2022 Clinical Data: dyspnea/cough Comparison: Portable chest, 11/14/2022 Findings: No nodules, masses or effusions are seen. The heart is slightly enlarged. The pulmonary vas cularity is not increased. No pneumonia or pneumothorax is seen. The diaphragms are flattened. Monito r leads are on the chest wall. XR/XR chest 1V portable [id number] Impression: Hyperinflation and cardiomegaly.
--- NOTE | 2022-11-27 07:14 | CTR_ITS ---
PROCEDURE INFORMATION: Exam: CT Head Without Contrast Exam date and time: 11/27/2022 7:27 AM Age: 72 years old Clinical indication: Dizziness; Prior surgery; Surgery date: 3-7 days post-operative; Surgery type: Left endarterectomy; Additional info: TIA TECHNIQUE: Imaging protocol: Computed tomography of the head without contrast. Radiation optimization: All CT scans at this facility use at least one of these dose optimization techniques: automated exposure control; mA and/or kV adjustment per patient size (includes targeted exams where dose is matched to clinical indication); or iterative reconstruction. REPORTING DATA: Count of CT and Cardiac NM exams in prior 12 months: This patient has received 2 known CTs and 0 known cardiac nuclear medicine studies in the 12 months prior to the current study. COMPARISON: CT angio headneck* [id number] 11/14/2022 1:21 PM RADIATION DOSE METRICS: Total DLP (mGy-cm): 1109.38 FINDINGS: Brain: There is no acute intracranial hemorrhage or mass effect. Mild diffuse volume loss is within the range of normal for patient age. There are small vessel ischemic changes within the periventricular and subcortical white matter, but the normal lewis/white matter delineation is maintained. Cerebral ventricles: No ventriculomegaly. Paranasal sinuses: There is moderate right maxillary sinus mucosal thickening extending into the nasal cavity. Mastoid air cells: Visualized mastoid air cells are well aerated. Bones/joints: Unremarkable. No acute fracture. Soft tissues: Unremarkable. CT/CT head wo con* [id number] IMPRESSION: No acute hemorrhage or edema.
[2022-11-27 07:15] VITALS: BP 150/81; PULSE 97; RESP 24; O2SAT 95; BMI 22.7
[2022-11-27 07:36] LABS: Basophils # 0.1 10^3/uL (0.0-0.1); Basophils % 0.6 %; Eosinophils # 0.2 10^3/uL (0.0-0.8); Eosinophils % 2.7 %; Hematocrit 35.5 % (42.0-52.0); Hemoglobin 11.3 g/dL (11.7-16.6); Mean Corpuscular HGB Conc 31.8 g/dL (30.0-36.0); Mean Corpuscular Hemoglobin 30.1 pg (28.0-34.0); Mean Corpuscular Volume 94.7 fl (80-94); Mean Platelet Volume 11.2 fL (7.4-10.4); Monocytes % 12.8 %; Neutrophils # 5.66 10^3/uL (1.8-7.7); Neutrophils % 70.5 %; Nucleated Red Blood Cells % 0 %; Platelet Count 184 10^3/cmm (130-400); Red Blood Count 3.75 10^6/uL (4.1-5.3); Red Cell Distribution Width 13.9 % (12.1-15.1)
--- NOTE | 2022-11-27 07:36 | ED_ITS ---
HPI - Neuro Symptoms/Deficit General: Chief Complaint: Neuro Symptoms/Deficit Stated Complaint: POSSIBLE TIA/ LIFE VEST Time Seen by Provider: 11/27/22 07:14 History of Present Illness: 72-year-old male arrives via EMS. Patient is very complicated. He has severe cardiomyopathy with seen him in October he had recent been diagnosed with congestive heart failure we had adjusted medications he was stable at that time and he was discharged home on medication adjustments he returned later in the month with a left-sided facial droop and was transferred to [facility] in [place]. This morning an episode where he slumped over on the toilet. Earlier in the week he had had a stent placed in his right carotid artery. Patient had severe disease he was started on Eliquis Plavix and aspirin. He had some heparin-induced thrombocytosis and he was monitored closely. He was not felt to be a candidate for an endarterectomy and underwent stenting. Prior to arriving via EMS the patient's attending vascular surgeon had called from [place] and reviewed the case with me and gave much of the history that had occurred after the patient was transferred from here. On arrival here patient is awake and alert he has no facial droop and no new focal deficits. Initial CT of the head is without any sign of acute bleed. CTA is pending as well as other appropriate labs. Onset (ago): minute(s) Severity: mild Quality: weak Relieving factors: none Exacerbating factors: none Associated symptoms: Deny chest pain, cough, diaphoresis, fevers/chills, headache(s), anorexia, malaise, nausea, seizures, short of breath, syncope, tingling, vertigo, vomiting or weakness Treatments Prior to Arrival: none Review of Systems Const: Denies: fever(s), chills, fatigue, malaise or diaphoresis ENMT: Denies: throat pain, ear or mastoid pain, nasal discharge or nasal congestion Card: Denies: chest pain, palpitations, irregular heart rhythm or syncope Resp: Denies: dyspnea, productive cough or non-productive cough GI: Denies: nausea or vomiting : Denies: flank pain, dysuria, urinary frequency or urinary urgency Skin/Breast: Denies: rash or pruritus Neuro: Denies: headache(s) or vertigo PFS ED PFSH: Medical History Bee sting allergy Environmental allergies Essential (primary) hypertension Neuropathy due to herpes zoster Type 2 diabetes mellitus Surgical History Hx of hernia repair Family History Mother Diabetes Hypertension CAD (coronary artery disease) Chronic kidney disease (CKD) Father CAD (coronary artery disease) Grandfather Suicide Denies family history of Clotting disorder Dementia Hyperlipidemia Psychiatric illness Anesthesia complication Bleeding disorder Family history of premature coronary artery disease Lung disease Cancer Stroke Social History Smoking and tobacco status: never smoked Second hand smoke exposure: No Smoking risk assessment/counseling performed?: No Alcohol intake: never Desire information about alcohol rehabilitation?: No Counseling given: No Desire information about substance/drug rehabilitation?: No Counseling given: No Adopted: No Caregiver/support person: No Lives independently: Yes Household members: spouse Housing: House Marital status: service: Yes branch: [employer] Current occupational status: retired Current occupational exposures/hazards: No Pets and animals: Yes Pets & animals: farm animals Current gender identity: Male NIH stroke score NIHSS: Level Of Consciousness - 1a: 0 Level Of Consciousness Questions - 1b: Both Correct Level Of Consciousness Commands - 1c: Both Correct Best Gaze - 2: Normal Visual Rivera - 3: No Visual Loss Facial Palsy - 4: Normal Motor Arm Right - 5: No Drift Motor Arm Left - 5: No Drift Motor Leg Right - 6: No Drift Motor Leg Left - 6: No Drift Limb Ataxia - 7: Absent Sensory - 8: Normal Best Language - 9: No Aphasia Dysarthia - 10: Normal Extinction And Inattention - 11: 0 Score: Total Score: 0 Physical Exam Const: COMMON NORMALS: no acute distress GENERAL APPEARANCE: cooperative and comfortable ORIENTATION/CONSCIOUSNESS: Yes awake, Yes oriented to person, Yes oriented to place and Yes oriented to time HENMT: COMMON NORMALS: normocephalic, atraumatic and hearing grossly normal bilaterally HEAD & SCALP: normocephalic and atraumatic Resp: COMMON NORMALS: normal respiratory effort, No retractions, No use of accessory muscles and clear to auscultation bilaterally AUSCULTATION: clear to auscultation bilaterally Cardio: COMMON NORMALS: regular rate, regular rhythm and No murmurs present (Cardio) RATE: regular rate RHYTHM: regular rhythm GI: COMMON NORMALS: Soft to palpation and No hepatosplenomegaly present AUSCULTATION: Yes normoactive bowel sounds PALPATION: Yes Soft to palpation, No Tenderness to palpation present (GI), No Guarding due to palpation present (GI) and Yes No hepatosplenomegaly present Extremity: COMMON NORMALS: normal to inspection, capillary refill normal, no clubbing, cyanosis or edema, no calf tenderness and no pedal edema Neuro: SENSORIUM/ORIENTATION: Yes oriented to person, Yes oriented to place and Yes oriented to time Skin: COMMON NORMALS: no rashes or lesions noted GENERAL SKIN EXAM: no rashes or lesions noted Course Vital Signs: Vital signs: Vital Signs Pulse Rate 80 11/27/22 11:18 Respiratory Rate 23 H 11/27/22 11:18 Blood Pressure 132/67 11/27/22 11:18 Pulse Oximetry 92 11/27/22 11:18 Oxygen Delivery Me thod 11/27/22 09:28 MDM - Neuro Symptoms/Deficit Medical Decision Making Labs and imaging reviewed. His vascular surgeon from [place] actually called before the patient arrived they had called him and discussed with him. Patient had a very difficult course in [place] he has a severe cardiomyopathy and severe stenosis had stented the left carotid artery. He had asked that we repeat his CTA to ensure that there was not an in-stent stenosis. CTA was normal. Patient's symptoms have completely resolved and talking to him I suspect he had an orthostatic event he had done some stretching by bending over at the waist to touch his toes and then after that had gotten into the shower and when he bent over to picking belt operator a washcloth he had dropped he got lightheaded dizzy and slid into the floor of the shower he never fell per se or hit his head. He is completely resolved now and has no further symptoms. discussed again with Dr. Lindsay. He recommends that the stop the Eliquis continue the aspirin and Plavix follow-up with him as previously scheduled return if he has further problems. Reviewed with the patient he is agreeable to this. Medical Records I reviewed the patient's medical records. Lab Data I reviewed the patient's lab results. 11/27/22 07:25 11/27/22 07:25 Radiology Impressions Chest X-Ray 11/27/22 07:14 Impression: Hyperinflation and cardiomegaly. Head CT 11/27/22 07:14 IMPRESSION: No acute hemorrhage or edema. Head/Neck CTA 11/27/22 07:37 IMPRESSION: Intracranial arterial circulation within normal limits. IMPRESSION: 1. Left common and internal carotid artery stent with moderate in stent stenosis of the origin of the left internal carotid artery. 2. Severe stenosis of the origin of the left vertebral artery. Moderate stenosis of the origin of the right vertebral artery. 3. 70% stenosis of the origin of the right internal carotid artery. 4. Mediastinal and right hilar lymphadenopathy, incompletely imaged. Small right pleural effusion. Dedicated imaging of the chest may be of benefit. REFERENCES: NASCET CRITERIA. The degree of stenosis in the cervical segment of the internal carotid artery is based on NASCET criteria. Normal is no stenosis. Mild is less than 50% stenosis. Moderate is 50-69% stenosis. Severe is 70% to 99% stenosis. Total occlusion is no detectable patent lumen. Laboratory Results WBC 8.0 10^3/uL (4.0-10.0) 11/27/22 07:25 RBC 3.75 10^6/uL (4.1-5.3) L 11/27/22 07:25 Hgb 11.3 g/dL (11.7-16.6) L 11/27/22 07:25 Hct 35.5 % (42.0-52.0) L 11/27/22 07:25 MCV 94.7 fl (80-94) H 11/27/22 07:25 MCH 30.1 pg (28.0-34.0) 11/27/22 07:25 MCHC 31.8 g/dL (30.0-36.0) 11/27/22 07:25 RDW 13.9 % (12.1-15.1) 11/27/22 07:25 Plt Count 184 10^3/cmm (130-400) 11/27/22 07:25 MPV 11.2 fL (7.4-10.4) H 11/27/22 07:25 Neut % (Auto) 70.5 % 11/27/22 07:25 Lymph % (Auto) 13.0 % 11/27/22 07:25 Ralls % (Auto) 12.8 % 11/27/22 07:25 Eos % (Auto) 2.7 % 11/27/22 07:25 Baso % (Auto) 0.6 % 11/27/22 07:25 Neut # (Auto) 5.66 10^3/uL (1.8-7.7) 11/27/22 07:25 Lymph # (Auto) 1.0 10^3/uL (0.8-4.8) 11/27/22 07:25 Ralls # (Auto) 1.0 10^3/uL (0.2-0.9) H 11/27/22 07:25 Eos # (Auto) 0.2 10^3/uL (0.0-0.8) 11/27/22 07:25 Baso # (Auto) 0.1 10^3/uL (0.0-0.1) 11/27/22 07:25 Nucleated RBC % (auto) 0 % 11/27/22 07:25 Nucleated RBCs # 0.0 /100WBC 11/27/22 07:25 Sodium 133 mmol/L (136-145) L 11/27/22 07:25 Potassium 4.3 mmol/L (3.5-5.1) 11/27/22 07:25 Chloride 99 mmol/L (98-107) 11/27/22 07:25 Carbon Dioxide 20 mmol/L (22-29) L 11/27/22 07:25 Anion Gap 18.3 (5-19) 11/27/22 07:25 BUN 10 mg/dL (8-23) 11/27/22 07:25 Creatinine 0.8 mg/dL (0.7-1.2) 11/27/22 07:25 GFR Calculation Not Reportable 11/27/22 07:25 Glucose 118 mg/dL (65-115) H 11/27/22 07:25 Calculated Osmolality 276 mOsm/kg (285-295) L 11/27/22 07:25 Calcium 9.2 mg/dL (8.5-10.5) 11/27/22 07:25 Total Bilirubin 0.9 mg/dL (0.15-1.2) 11/27/22 07:25 AST 33 U/L (0-40) 11/27/22 07:25 ALT 23 U/L (0-41) 11/27/22 07:25 Alkaline Phosphatase 60 U/L (40-130) 11/27/22 07:25 Troponin T Baseline 255 ng/L (0-15) H* 11/27/22 07:25 Troponin T 120 Minute 221.5 ng/L (0-15) H 11/27/22 09:12 Delta Troponin T -33.5 ABS# (0-10) L 11/27/22 09:12 Total Protein 6.4 g/dL (6.6-8.7) L 11/27/22 07:25 Albumin 3.9 g/dL (3.5-5.2) 11/27/22 07:25 Globulin 2.5 g/dL (1.3-4.6) 11/27/22 07:25 Discharge Plan Discharge Patient Disposition: Home Clinical Impression: Orthostasis, Cerebrovascular accident, Vasovagal near syncope, Ischemic cardiomyopathy Condition: Stable Prescriptions: Discontinued Eliquis 2.5 mg Tablet 2.5 mg PO BID No Action albuterol sulfate 90 mcg/actuation HFA aerosol inhaler 2 puff inhalation QID PRN (Reason: shortness of breath or wheezing) Qty: 6.7 0RF spironolactone 25 mg tablet 25 mg PO DAILY Qty: 90 3RF potassium chloride 20 mEq tablet extended release 20 meq PO DAILY Qty: 90 3RF Entresto 24-26 mg tablet 1 tab PO BID Qty: 180 0RF cholecalciferol (vitamin D3) [Vitamin D3] 25 mcg (1,000 unit) Capsule 25 mcg PO DAILY Men's 50 Plus Multivitamin 400-20-370 mcg Tablet 1 tab PO DAILY atorvastatin 80 mg Tablet 80 mg PO QPM clopidogrel 75 mg Tablet 75 mg PO DAILY aspirin [Aspir-81] 81 mg Tablet,Delayed Release (Dr/Ec) 81 mg PO DAILY carvedilol 3.125 mg Tablet 3.125 mg PO BID Rx Instructions: must administer with a meal/food empagliflozin 25 mg Tablet 25 mg PO QAM furosemide 20 mg tablet 40 mg PO DAILY PRN (Reason: Edema) trazodone 50 mg tablet 50 mg PO BEDTIME Discharge Orders: Discharge ED (Routine); Ordered 11/27/22 Ordered By: Dany Schultz Referrals: Jazmyne Whittington FNP-C [Primary Care Provider] - Discharge Diet: Usual diet Discharge Activity: Limit activity as instructed Patient Instructions: Opioid Safety, Pain Management Activity Restrictions/Additional Instructions: You were seen today for an episode of nearly passing out. After discussing the episode with you in reviewing the events surrounding it I suspect you had a near syncopal episode related to a drop in blood pressure (orthostasis) and heart rate (vasovagal reaction). Recommend you continue all your current medications continue to wear your LifeVest follow-up with Dr. Lindsay as previously scheduled. Dr. Lindsay did contact us while you were in the emergency room. He reviewed your labs and your CT scans that were done today. He did recommend that you stop your Eliquis continue your Plavix and aspirin. Coding Level of Care Code ED Syrup Machine Laborer for Dotty Ceballos
--- NOTE | 2022-11-27 07:37 | CTR_ITS ---
PROCEDURE INFORMATION: Exam: CTA Head With Contrast, Arteriography Exam date and time: 11/27/2022 7:38 AM Age: 72 years old Clinical indication: Dizziness and giddiness; Prior surgery; Surgery date: 3-7 days post-operative; Surgery type: Left endarterectomy; Additional info: Possible TIA TECHNIQUE: Imaging protocol: Computed tomographic angiography of the head with contrast. Exam focused on the arteries. 3D rendering (Not supervised by radiologist): MIP and/or 3D reconstructed images were created by the technologist. Radiation optimization: All CT scans at this facility use at least one of these dose optimization techniques: automated exposure control; mA and/or kV adjustment per patient size (includes targeted exams where dose is matched to clinical indication); or iterative reconstruction. Contrast material: OMNI 350; Contrast volume: 100 ml; Contrast route: INTRAVENOUS (IV); REPORTING DATA: Count of CT and Cardiac NM exams in prior 12 months: This patient has received 2 known CTs and 0 known cardiac nuclear medicine studies in the 12 months prior to the current study. COMPARISON: CT angio headneck* [id number] 11/14/2022 1:21 PM RADIATION DOSE METRICS: Total DLP (mGy-cm): 552.18 FINDINGS: ANTERIOR CIRCULATION: Right internal carotid artery: Intracranial segment is patent with no significant stenosis. No aneurysm. Right middle cerebral artery: No occlusion or significant stenosis. No aneurysm. Right anterior cerebral artery: No occlusion or significant stenosis. No aneurysm. Left internal carotid artery: Intracranial segment is patent with no significant stenosis. No aneurysm. Left middle cerebral artery: No occlusion or significant stenosis. No aneurysm. Left anterior cerebral artery: No occlusion or significant stenosis. No aneurysm. POSTERIOR CIRCULATION: Right vertebral artery: No occlusion or significant stenosis. No aneurysm. Left vertebral artery: No occlusion or significant stenosis. No aneurysm. Basilar artery: No occlusion or significant stenosis. No aneurysm. Right posterior cerebral artery: No occlusion or significant stenosis. No aneurysm. Left posterior cerebral artery: No occlusion or significant stenosis. No aneurysm. Brain: No definite mass, mass effect, or midline shift. Cerebral ventricles: No ventriculomegaly. Paranasal sinuses: There is moderate right maxillary sinus mucosal thickening with extension into the right nasal cavity. Bones/joints: Unremarkable. No acute fracture. Soft tissues: Unremarkable. PROCEDURE INFORMATION: Exam: CTA Neck With Contrast Exam date and time: 11/27/2022 7:38 AM Age: 72 years old Clinical indication: Dizziness and giddiness; Prior surgery; Surgery date: 3-7 days post-operative; Surgery type: Left endarterectomy; Additional info: Possible TIA TECHNIQUE: Imaging protocol: Computed tomographic angiography of the neck with contrast. 3D rendering (Not supervised by radiologist): MIP and/or 3D reconstructed images were created by the technologist. Radiation optimization: All CT scans at this facility use at least one of these dose optimization techniques: automated exposure control; mA and/or kV adjustment per patient size (includes targeted exams where dose is matched to clinical indication); or iterative reconstruction. Contrast material: OMNI 350; Contrast volume: 100 ml; Contrast route: INTRAVENOUS (IV); REPORTING DATA: Count of CT and Cardiac NM exams in prior 12 months: This patient has received 2 known CTs and 0 known cardiac nuclear medicine studies in the 12 months prior to the current study. COMPARISON: CT angio headneck* [id number] 11/14/2022 1:21 PM RADIATION DOSE METRICS: Total DLP (mGy-cm): 552.18 FINDINGS: Right common carotid artery: No stenosis. No dissection or occlusion. Right internal carotid artery: There are calcific and noncalcific atherosclerotic changes of the right proximal internal carotid artery. There is 70% stenosis of the origin of the right internal carotid artery. Right external carotid artery: No occlusion or stenosis of the origin. Left common carotid artery: There is a left common carotid artery stent. Left internal carotid artery: Stent extends from the left common carotid and into the left proximal internal carotid artery. There is moderate in stent stenosis of the left internal carotid artery origin. Left external carotid artery: No occlusion or stenosis of the origin. Right vertebral artery: There is moderate stenosis of the right proximal vertebral artery. Left vertebral artery: There is severe stenosis of the origin of the left vertebral artery. Lungs/pleura: There is a small right pleural effusion. Lymph nodes: Soft tissues: There are postoperative changes within the left anterolateral neck, with soft tissue swelling and foci of air. Bones/joints: No acute fracture. There is degenerative disc disease and spondylosis. CT/CT angio headneck* [id number] IMPRESSION: Intracranial arterial circulation within normal limits. IMPRESSION: 1. Left common and internal carotid artery stent with moderate in stent stenosis of the origin of the left internal carotid artery. 2. Severe stenosis of the origin of the left vertebral artery. Moderate stenosis of the origin of the right vertebral artery. 3. 70% stenosis of the origin of the right internal carotid artery. 4. Mediastinal and right hilar lymphadenopathy, incompletely imaged. Small right pleural effusion. Dedicated imaging of the chest may be of benefit. REFERENCES: NASCET CRITERIA. The degree of stenosis in the cervical segment of the internal carotid artery is based on NASCET criteria. Normal is no stenosis. Mild is less than 50% stenosis. Moderate is 50-69% stenosis. Severe is 70% to 99% stenosis. Total occlusion is no detectable patent lumen.
[2022-11-27] MEDS: iohexol 350 mg/mL 500 mL Btl (per mL) IV (07:58)
[2022-11-27 08:03] LABS: Alanine Aminotransferase 23 U/L (0-41); Albumin Level 3.9 g/dL (3.5-5.2); Alkaline Phosphatase 60 U/L (40-130); Anion Gap 18.3 (5-19); Aspartate Amino Transferase 33 U/L (0-40); Blood Urea Nitrogen 10 mg/dL (8-23); Calcium 9.2 mg/dL (8.5-10.5); Carbon Dioxide 20 mmol/L (22-29); Chloride 99 mmol/L (98-107); Globulin 2.5 g/dL (1.3-4.6); Glucose 118 mg/dL (65-115); Osmolality Calculated 276 mOsm/kg (285-295); Potassium 4.3 mmol/L (3.5-5.1); Sodium 133 mmol/L (136-145); Total Bilirubin 0.9 mg/dL (0.15-1.2); Total Protein 6.4 g/dL (6.6-8.7)
[2022-11-27 08:09] LABS: Troponin(5th) Baseline 255 ng/L (0-15)
--- NOTE | 2022-11-27 09:10 | ECG_ITS ---
[facility] Test Date: 2022-11-27 Pat Name: Loy Palumbo Department: Room: Gender: Male Junior Network Administrator: : 1950 Requested By: Dany Curtis Order Number: [id number] Sandra MD: Shalom Cortez M.D. Measurements Intervals [place] Rate: 86 P: 66 NH: 143 QRS: 43 QRSD: 129 T: 215 QT: 399 QTc: 477 Interpretive Statements SINUS RHYTHM LEFT VENTRICULAR HYPERTROPHY AND ST-T CHANGE [VOLTAGE CRITERIA PLUS ST/T ABNORMALITY] Compared to ECG 11/14/2022 19:04:37 No significant changes Electronically Signed On 11-27-2022 15:13:15 PRACTICE PROFESSIONAL by Shalom Cortez M.D. [id number]
[2022-11-27 09:28] VITALS: BP 130/67; PULSE 94; O2SAT 93
[2022-11-27 09:49] LABS: Troponin 5 2HR 221.5 ng/L (0-15); Troponin 5 2HR Delta -33.5 ABS# (0-10)
--- NOTE | 2022-11-27 09:54 | USCV_ITS ---
Loy Palumbo Age: 72 Gender: M : 1950 Exam Date: 11/27/2022 10:23 Ordering Phys: Dany Schultz DO Technologist: ARTURO [place] [facility] [place]: chf, cardiomyopathy BP: / HR: 83 Rhythm: Sinus Technical Quality: Adequate MEASUREMENTS (Male / Female) Normal Values 2D ECHO LV Diastolic Diameter PLAX 7.1 cm 4.2 - 5.9 / 3.9 - 5.3 cm LV Systolic Diameter PLAX 6.8 cm IVS Diastolic Thickness 0.9 cm 0.6 - 1.0 / 0.6 - 0.9 cm IVS Systolic Thickness 1.0 cm LVPW Diastolic Thickness 0.8 cm 0.6 - 1.0 / 0.6 - 0.9 cm LVPW Systolic Thickness 0.8 cm LV Ejection Fraction 2D Teich 8.4 % LV Ejection Fraction MOD 2C 13.0 % LV Ejection Fraction 2C AL 10.9 % FINDINGS Left Ventricle Severe diffuse hypokinesia of the left ventricle with ejection fraction of around 12%. Moderately dilated LV cavity Right Ventricle Appears to be normal size with slightly diminished ejection Right Atrium Possibly of normal size Left Atrium Moderately increased left atrial size. Mitral Valve Mild mitral valve regurgitation. Mild mitral annular calcification. Aortic Valve Mild aortic valve regurgitation. Thickened aortic valve. Tricuspid Valve No gross abnormalities noted Pulmonic Valve Pulmonic valve not well visualized. Pericardium No pericardial effusion. Aorta Normal aortic annulus size. IVC Inferior vena cava not visualized. CONCLUSIONS Severe diffuse hypokinesia of the left ventricle with ejection fraction of around 12%. Moderately dilated left ventricle. Moderately increased left atrial size. Mild mitral valve regurgitation. Mild mitral annular calcification. Thickened aortic valve. Mild aortic valve regurgitation. There is no pericardial effusion. Compared to the study from 11/05/2022, there is worsening of the left ventricular ejection fraction from 25% to 12% Dr Paul Huertas MD [facility] (Electronically Signed) Final Date: 28 November 2022 18:38 S
[2022-11-27 11:18] VITALS: BP 132/67; PULSE 80; RESP 23; O2SAT 92
== END 2022-11-27 11:19 | disposition home or self-care (01) ==
PROVIDERS: Emergency Provider Family Medicine; PCP Nurse Practitioner Family
DX: T82.855A Stenosis of coronary artery stent, initial encounter (principal); I65.02 Occlusion and stenosis of left vertebral artery; I65.21 Occlusion and stenosis of right carotid artery; I95.1 Orthostatic hypotension; I11.0 Hypertensive heart disease with heart failure; I50.9 Heart failure, unspecified; I25.5 Ischemic cardiomyopathy; I08.0 Rheumatic disorders of both mitral and aortic valves; E11.9 Type 2 diabetes mellitus without complications; Z79.01 Long term (current) use of anticoagulants; Z79.02 Long term (current) use of antithrombotics/antiplatelets; Z79.82 Long term (current) use of aspirin; Z86.79 Personal history of other diseases of the circulatory system; Y83.2 Surgical operation with anastomosis, bypass or graft as the cause of abnormal reaction of the patient, or of later complication, without mention of misadventure at the time of the procedure
CPT/HCPCS: 70450; 70496; 70498; 71045; 80053; 84484; 85025; 93005; 93308; 99285; Q9967